=== PATIENT | female | born 1955 | race Caucasian/White ===

== ENCOUNTER 2025-03-21 14:35 | Outpatient (CLI) | payer MEDICARE, OTHER, SELFPAY ==
--- NOTE | 2025-03-21 | XR_ITS ---
FINAL REPORT CLINICAL HISTORY: LUMBAR RADICULOPATHY COMPARISON: None FINDINGS: LUMBOSACRAL SPINE SERIES Five views of the lumbosacral spine were obtained. There is no fracture present. There is no malalignment. There is mild anterior osteophyte formation L3-4 and L4-5. Marked facet hypertrophy is noted in the lower lumbar spine. IMPRESSION: Chronic/degenerative changes without acute process. Reviewed, Interpreted and Dictated by Tawanda Vyas MD Transcribed by Susan Clancy Authenticated and [facility]
== END 2025-03-21 23:59 | disposition home or self-care (01) ==
LOC: RAD 14:40
PROVIDERS: PCP Family Medicine; Visit Provider Physical Medicine & Rehabilitation Pain Medicine
DX: M47.26 Other spondylosis with radiculopathy, lumbar region (principal)
CPT/HCPCS: 72110